=== PATIENT | male | born 1935 | race Caucasian/White ===

== ENCOUNTER → 2017-08-20 09:33 | Outpatient (CLI) | payer MEDICARE, OTHER ==
[2011-09-07 09:47] VITALS: BMI 25.4
== END | disposition home or self-care (01) ==
LOC: D.CT 09:33
DX: R63.4 Abnormal weight loss (principal); R31.9 Hematuria, unspecified

== ENCOUNTER → 2017-08-27 07:48 | Outpatient (CLI) | payer MEDICARE, OTHER ==
[2011-09-07 09:47] VITALS: BMI 25.4
== END | disposition home or self-care (01) ==
LOC: D.CT 07:48
DX: R63.4 Abnormal weight loss (principal)

== ENCOUNTER → 2017-09-10 09:29 | Outpatient (CLI) | payer MEDICARE, OTHER ==
[2011-09-07 09:47] VITALS: BMI 25.4
== END | disposition home or self-care (01) ==
LOC: D.NM 09:29
DX: R93.5 Abnormal findings on diagnostic imaging of other abdominal regions, including retroperitoneum (principal)

== ENCOUNTER → 2017-11-19 10:02 | Outpatient (CLI) | payer MEDICARE, OTHER ==
[2011-09-07 09:47] VITALS: BMI 25.4
[~2017-11-19 10:02] MED LIST: CENTRUM MEN'S1 EACH PO; COUMADIN2.5 MG PO; COUMADIN5 MG PO; LOTREL 5/10 MG1 CAP PO
[2017-11-19 11:19] LABS: BASOPHILS 0.3 % (0-2); EOSINOPHILS 2.4 % (0-7); HEMATOCRIT 41.2 % (42.0-54.0); HEMOGLOBIN 13.7 g/dL (13.5-17.5); IMMATURE GRANULOCYTES 0.3 % (0-5); LYMPHOCYTES 9.6 % (15-50); MCH 32.1 pg (26.0-34.0); MCHC 33.3 g/dL (31.0-37.0); MCV 96.5 fL (80.0-100.0); MEAN PLATELET VOLUME 9.1 fL (7.4-10.4); MONOCYTES 9.3 % (2-11); NEUTROPHILS 78.1 % (40-80); RBC 4.27 10x6/uL (4.20-6.10); RDW 13.4 % (11.5-14.5); WBC 6.7 10x3/uL (4.8-10.8)
[2017-11-19 11:27] LABS: PLATELET COUNT 264 10x3/uL (130-400)
[2017-11-20 12:17] LABS: ANA REFLEX - DIRECT Negative (Negative)
[2018-01-27 13:43] VITALS: BMI 20.7
== END | disposition home or self-care (01) ==
LOC: D.LAB 10-03 09:00 → D.RAD 10-03 09:00 → D.LAB 10-03 09:00
PROVIDERS: Internal Medicine Pulmonary Disease
DX: R91.1 Solitary pulmonary nodule (principal)

== ENCOUNTER → 2018-02-19 08:27 | Outpatient (CLI) | payer MEDICARE, OTHER ==
[2018-01-27 13:43] VITALS: BMI 20.7
[2018-02-19 08:55] LABS: ALBUMIN 2.9 g/dL (3.4-5.0); BILIRUBIN - DIRECT 0.19 mg/dL (0.00-0.30); BILIRUBIN - INDIRECT 0.43 mg/dL (0.00-1.00); BILIRUBIN - TOTAL 0.62 mg/dL (0.2-1.3); PROTEIN - SERUM 6.7 g/dL (6.4-8.2)
== END | disposition home or self-care (01) ==
LOC: D.US 08:27
PROVIDERS: Internal Medicine Gastroenterology
DX: K76.0 Fatty (change of) liver, not elsewhere classified (principal)

== ENCOUNTER 2018-03-05 11:39 | Day surgery (SDC) | payer MEDICARE, OTHER ==
[~2018-03-05] VITALS: Ht 175.3 cm; Wt 63.5 kg
--- NOTE | ~2018-03-05 | OP ---
PATIENT NAME: DENI MEDINA MEDICAL RECORD: [id number] :36 LOCATION:[facility] ADMISSION DATE: SURGEON: HANK ADEN DO DATE OF OPERATION: 03/05/2018 PROCEDURE: Colonoscopy with biopsy. INDICATIONS FOR PROCEDURE: History of diverticular disease and abnormal findings on CT scan from July 2017. He has also had change in bowel habits and abnormal weight loss. SCOPE: Olympus video pediatric colonoscope. MEDICATIONS: Propofol 300 mg IV per anesthesia. ESTIMATED BLOOD LOSS: Minimal. COMPLICATIONS: None. FINDINGS: Informed consent was given. The patient was made comfortable with the above medication. After reaching an adequate level of sedation by slow IV push, the patient was placed on his left side. A digital rectal examination was performed and was normal. The endoscope was advanced under direct visualization through the rectum and advanced only to the sigmoid colon to approximately 25 cm from the anal verge. At this site, there was significant stenosis likely related to diverticular disease. In this area, it was difficult to maintain vision, but there were multiple polypoid appearing lesions, which could be adenomatous or could be consistent with prolapse type polyps from the tissue being pulled in and out through this segment of bowel. There was severe diverticulosis without evidence of diverticulitis. Approximately 30 minutes were spent trying to pass this segment of colon, unsuccessfully. There was no obvious mass or colon cancer visualized. Biopsies were taken of a couple of polypoid lesions to look for adenomatous tissue as well as the surrounding tissue. Tattoo was placed just distal to the stenosed site and the endoscope was withdrawn back into the rectum. Retroflexion was performed in the rectum with a normal appearing rectal wall. The endoscope was withdrawn from the patient. The patient tolerated the procedure well and there were no complications. IMPRESSION: Stenosed sigmoid colon due to severe diverticulosis, but I cannot exclude an obstructing mass or other lesion. There were some polypoid lesions in this side of bowel as well as severe diverticulosis. Biopsies were taken. Tattoo was placed distally to the stenosed segment. PLAN AND RECOMMENDATIONS: 1. Discharge home when recovery parameters are met. 2. Follow up biopsy specimen results. 3. Barium enema to see if contrast passed this site of colon. 4. Recommend surgical consultation for consideration of a resection and further evaluation of this segment of bowel. 5. Pending future plans with possible surgery. May need a followup colonoscopy to evaluate the more proximal segments of colon. TRANSINT:[id number] Voice Confirmation ID: [id number] DOCUMENT ID: [id number] OPERATIVE REPORT [id number] DENI MEDINA,HANK Farias DO at 1255 CC: [id number] DICTATION DATE: 03/05/18 1537 STEEL SPAR OPERATOR: 03/05/18 1613 [facility] 03/05/18 [facility] [address] [place] [address]
[2018-03-05 12:41] LABS: BASOPHILS 0.5 % (0-2); EOSINOPHILS 1.1 % (0-7); HEMATOCRIT 43.6 % (42.0-54.0); HEMOGLOBIN 14.5 g/dL (13.5-17.5); IMMATURE GRANULOCYTES 0.2 % (0-5); LYMPHOCYTES 9.5 % (15-50); MCH 31.9 pg (26.0-34.0); MCHC 33.3 g/dL (31.0-37.0); MCV 95.8 fL (80.0-100.0); MEAN PLATELET VOLUME 8.9 fL (7.4-10.4); MONOCYTES 11.5 % (2-11); NEUTROPHILS 77.2 % (40-80); PLATELET COUNT 254 10x3/uL (130-400); RBC 4.55 10x6/uL (4.20-6.10); RDW 13.8 % (11.5-14.5); WBC 6.4 10x3/uL (4.8-10.8)
[2018-03-05 12:50] LABS: CALCIUM 8.8 mg/dL (8.5-10.1); CARBON DIOXIDE 25.7 mmol/L (21.0-32.0); CREATININE - SERUM 1.1 mg/dL (0.6-1.3); POTASSIUM - SERUM 3.7 mmol/L (3.5-5.1)
[2018-03-05 12:51] LABS: APTT 35.4 SECONDS (22.8-39.4); INR 1.52 (0.85-1.17); PROTIME 17.8 SECONDS (11.6-15.0)
[2018-03-05 13:32] VITALS: BP 176/107; Ht 175.3 cm; Wt 63.5 kg
== END 2018-03-05 18:25 | disposition home or self-care (01) ==
LOC: D.OPS 11:39
PROVIDERS: Anesthesiology
DX: K57.30 Diverticulosis of large intestine without perforation or abscess without bleeding (principal); Z01.812 Encounter for preprocedural laboratory examination

== ENCOUNTER → 2018-03-06 14:09 | Outpatient (CLI) | payer MEDICARE, OTHER ==
[2018-03-05 13:32] VITALS: BMI 21.7
[~2018-03-06 14:09] MED LIST changes: +COLACE100 MG PO; +HYDROCODON-ACE1 EAC7 PO
== END | disposition home or self-care (01) ==
LOC: D.RAD 14:09
DX: K56.609 Unspecified intestinal obstruction, unspecified as to partial versus complete obstruction (principal)

== ENCOUNTER → 2018-03-11 11:01 | Outpatient (CLI) | payer MEDICARE, OTHER ==
[2018-03-05 13:32] VITALS: BMI 21.7
== END | disposition home or self-care (01) ==
LOC: D.CT 11:01
DX: K56.609 Unspecified intestinal obstruction, unspecified as to partial versus complete obstruction (principal)

== ENCOUNTER → 2018-03-13 13:28 | Outpatient (CLI) | payer MEDICARE, OTHER ==
[2018-03-05 13:32] VITALS: BMI 21.7
[2018-03-13 14:49] LABS: CREATININE - SERUM 0.9 mg/dL (0.6-1.3)
== END | disposition home or self-care (01) ==
LOC: D.CT 13:28
PROVIDERS: Internal Medicine Gastroenterology
DX: R93.8 Abnormal findings on diagnostic imaging of other specified body structures (principal); R59.0 Localized enlarged lymph nodes

== ENCOUNTER 2018-04-04 08:50 | Inpatient (IN) | payer MEDICARE, OTHER ==
[2018-04-01 14:40] LABS: BASOPHILS 0.5 % (0-2); EOSINOPHILS 3.6 % (0-7); HEMATOCRIT 38.4 % (42.0-54.0); HEMOGLOBIN 12.5 g/dL (13.5-17.5); IMMATURE GRANULOCYTES 0.2 % (0-5); LYMPHOCYTES 11.2 % (15-50); MCH 31.4 pg (26.0-34.0); MCHC 32.6 g/dL (31.0-37.0); MCV 96.5 fL (80.0-100.0); MEAN PLATELET VOLUME 8.6 fL (7.4-10.4); MONOCYTES 9.3 % (2-11); NEUTROPHILS 75.2 % (40-80); PLATELET COUNT 290 10x3/uL (130-400); RBC 3.98 10x6/uL (4.20-6.10); RDW 13.7 % (11.5-14.5); WBC 6.3 10x3/uL (4.8-10.8)
[2018-04-01 14:50] LABS: CALC OSMOLALITY 290 mosm/kg (275-300); CALCIUM 9.2 mg/dL (8.5-10.1); CARBON DIOXIDE 35.3 mmol/L (21.0-32.0); CHLORIDE - SERUM 104 mmol/L (98-107); CREATININE - SERUM 0.9 mg/dL (0.6-1.3); GLUCOSE 108 mg/dL (74-106); POTASSIUM - SERUM 3.9 mmol/L (3.5-5.1); SODIUM 143 mmol/L (136-145); UREA NITROGEN 26 mg/dL (7-18); eGFR NON AFRICAN AMERICAN 86 mL/min (90-120)
[2018-04-01 15:16] LABS: INR 2.44 (0.85-1.17); PROTIME 25.9 SECONDS (11.6-15.0)
[2018-04-01 15:56] LABS: APTT 131.4 SECONDS (22.8-39.4)
[~2018-04-04] VITALS: Ht 175.3 cm; Wt 62.6 kg
[2018-04-04] VITALS (7 sets, daily range): BP systolic 110–132; BP diastolic 62–84; BMI 20.4
--- NOTE | ~2018-04-04 | OP ---
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 PROCEDURES: 1. Hand-assisted laparoscopic surgery - sigmoid colectomy. 2. Incidental appendectomy. SURGEON: Leticia Bowser MD JOSS HOUSE KEEPER: None. BLOOD LOSS: 150 cc. ANESTHESIA: General. COMPLICATIONS: None. The risks, possible complications, and alternatives to procedure were explained to the patient. He elects to proceed. The discussion specifically included, but was not limited to, bleeding requiring an emergency reoperation, infection, intestinal injury, possibility of colostomy or an ileostomy. We also discussed the possibility of an anastomotic leak. The indication for the appendectomy was to avoid diagnostic confusion in the future should the patient have a recurrence or persistence of abdominal pain. OPERATIVE COURSE: The patient was conveyed to the operating room electively on 04/04/2018. General anesthesia was induced by the anesthesia staff. The patient was placed in the Canales position. A digital rectal examination was performed. A colonoscope was inserted through the anus. It was advanced to the tattooed area. I then identified the diverticular stricture, which was very, very tight. I withdrew the endoscope. This flexible sigmoidoscopy was performed with utilizing CO2. The patient was then positioned supine. The abdomen and genitals were sterilely prepped and draped. A transverse incision was accomplished 2 fingerbreadths above the pubic symphysis. Sharp dissection was carried down through the skin and subcutaneous tissue as well as Rosibel fascia. The anterior fascia was incised transversely. The rectus muscles were pulled laterally. I entered the peritoneum through the midline. An Canelo retractor was placed. A Gelport was placed on top of the Canelo retractor. CO2 insufflation was used to insufflate through the 12 mm trocar. A laparoscopic examination of the abdomen was performed. The laparoscope was removed as well as the Gelport. Through the OPERATIVE REPORT [id number] ADAMDENI XIMENA Canelo retractor, I incised along the left white line of Toldt. There were some adhesions along the left side of the rectum and sigmoid colon. There was an inflammatory mass present. I incised the retroperitoneum on either side of the rectum. I identified the ureters. They were retracted for protection and umbilical tapes were placed around them to position them laterally, so they were undamaged during the operation. Methylene blue was given intravenously and we saw no leakage of methylene blue during the operation. I incised down both sides of the rectum. I bluntly had to free up some very dense scar tissue on the left side of the rectum. I chose the extent of my resection to be the mid sigmoid colon. I stapled across the sigmoid colon here with a CIPRIANO-75 stapler. I then took down the distal sigmoid colon mesentery utilizing the EnSeal device. I took down some of the mesorectum with the EnSeal device. I then placed the TA 60 stapler distal to the inflammatory mass and fired. I transected the sigmoid colon proximal to this. On the back table, I opened up the specimen. It did contain the tattoo as well as an inflammatory mass and the stenotic area. I then placed the proximal sigmoid colon and the rectum in apposition side by side. They were kept in place with 3-0 Vicryl sutures. A small proctotomy and small colotomy were accomplished. I advanced the anvils of the CIPRIANO-75 stapler and then fired. The resulting rectal colonic defect was closed with a running 4-0 Monocryl. I then imbricated this with another row of 4-0 Monocryl. Some additional imbrication with 3-0 Vicryls was then undertaken. The anastomosis appeared to be airtight. I irrigated in the pelvis with normal saline. I created a tunnel in the mesentery by dividing the mesentery off of the transverse colon. The appendix was grasped. A window was created in the mesoappendix. I took down the mesoappendix with the laparoscopic EnSeal device. I then stapled across the tip of the cecum with a CIPRIANO-75 stapler. I ran the small bowel. There was no evidence of injury to the small bowel. I placed a tongue of mesentery down into the pelvis in front of the anastomosis. I reperitonealized with a running 0 Vicryl. The rectus muscles were approximated in the midline with multiple interrupted horizontal mattress #1 Vicryl. The fascia was closed with running #1 Vicryl. The Rosibel's fascia was approximated with interrupted 3-0 Vicryl. The subdermis was approximated with interrupted 3-0 Vicryl. The skin was approximated with a running intracuticular 4-0 Vicryl. Benzoin and Steri-Strips were applied. The patient was then extubated and conveyed to the post-anesthesia care unit where he was in stable condition. TRANSINT:[id number] Voice Confirmation ID: [id number] DOCUMENT ID: [id number] OPERATIVE REPORT [id number] DENI MEDINA, LETICIA ACEVEDO at 1240 CC: JORDANA MACHADO, ADALI HORAN and HANK ADEN DO [id number] DICTATION DATE: 04/04/181851 LIQUID SUGAR FORTIFIER: 04/04/182025 DIS IN 04/10/18 [facility] [address] [place] [address]
[~2018-04-04 08:50] MED LIST changes: -COLACE100 MG PO; -HYDROCODON-ACE1 EAC7 PO
[2018-04-04 09:43] LABS: INR 1.62 (0.85-1.17); PROTIME 18.7 SECONDS (11.6-15.0)
[2018-04-04 09:44] LABS: APTT 39.6 SECONDS (22.8-39.4)
[2018-04-05] VITALS (7 sets, daily range): BP systolic 99–126; BP diastolic 53–77; Ht 175.3 cm; Wt 62.6 kg
[2018-04-05 05:58] LABS: BASOPHILS 0.1 % (0-2); EOSINOPHILS 0 % (0-7); HEMATOCRIT 36.9 % (42.0-54.0); IMMATURE GRANULOCYTES 0.2 % (0-5); LYMPHOCYTES 3.1 % (15-50); MCH 31.1 pg (26.0-34.0); MCHC 32.5 g/dL (31.0-37.0); MCV 95.6 fL (80.0-100.0); MEAN PLATELET VOLUME 9.1 fL (7.4-10.4); MONOCYTES 9.3 % (2-11); NEUTROPHILS 87.3 % (40-80); PLATELET COUNT 256 10x3/uL (130-400); RBC 3.86 10x6/uL (4.20-6.10); RDW 13.7 % (11.5-14.5); WBC 13.1 10x3/uL (4.8-10.8)
[2018-04-05 06:28] LABS: ALBUMIN 2.6 g/dL (3.4-5.0); ANION GAP 13.1 mmol/L (8-16); BILIRUBIN - TOTAL 0.59 mg/dL (0.2-1.3); CALCIUM 8.3 mg/dL (8.5-10.1); CARBON DIOXIDE 25.7 mmol/L (21.0-32.0); CREATININE - SERUM 1.1 mg/dL (0.6-1.3); MAGNESIUM - SERUM 1.8 mg/dL (1.8-2.4); PHOSPHOROUS 3.9 mg/dL (2.5-4.9); POTASSIUM - SERUM 3.8 mmol/L (3.5-5.1); PRE-ALBUMIN 15.3 mg/dL (18.0-35.7)
[2018-04-05] MEDS ORDERED: HYDROCODON-ACE1 EAC7 PO (20:31)
[2018-04-05] MEDS ORDERED: COLACE100 MG PO (20:31)
[2018-04-05] MEDS ORDERED: COUMADIN5 MG PO (23:32)
[2018-04-05] MEDS ORDERED: LOTREL 5/10 MG1 CAP PO (23:33)
[2018-04-05] MEDS ORDERED: COUMADIN2.5 MG PO (23:33)
[2018-04-05] MEDS ORDERED: CENTRUM MEN'S1 EACH PO (23:34)
[2018-04-06] VITALS: BP 111/80
[2018-04-06 04:00] VITALS: BP 129/72
[2018-04-06 05:17] LABS: BASOPHILS 0.1 % (0-2); EOSINOPHILS 0.2 % (0-7); HEMATOCRIT 39.2 % (42.0-54.0); HEMOGLOBIN 12.7 g/dL (13.5-17.5); IMMATURE GRANULOCYTES 0.3 % (0-5); LYMPHOCYTES 4.6 % (15-50); MCH 31.6 pg (26.0-34.0); MCHC 32.4 g/dL (31.0-37.0); MCV 97.5 fL (80.0-100.0); MEAN PLATELET VOLUME 9.1 fL (7.4-10.4); MONOCYTES 14.3 % (2-11); NEUTROPHILS 80.5 % (40-80); PLATELET COUNT 292 10x3/uL (130-400); RBC 4.02 10x6/uL (4.20-6.10); WBC 11.1 10x3/uL (4.8-10.8)
[2018-04-06 05:36] LABS: ALBUMIN 2.6 g/dL (3.4-5.0); BILIRUBIN - TOTAL 0.57 mg/dL (0.2-1.3); CALCIUM 8.5 mg/dL (8.5-10.1); CARBON DIOXIDE 27.5 mmol/L (21.0-32.0); CREATININE - SERUM 1.1 mg/dL (0.6-1.3); PROTEIN - SERUM 5.8 g/dL (6.4-8.2)
[2018-04-06 05:37] LABS: POTASSIUM - SERUM 4.5 mmol/L (3.5-5.1)
[2018-04-06 08:55] VITALS: BP 122/78
[2018-04-06 12:52] VITALS: BP 145/84
[2018-04-06 15:30] LABS: MACROPHAGES BF 7 %; MESOTHELIALS BF 3 %; NEUT - BF 85 %
[2018-04-06 16:20] VITALS: BP 119/57
[2018-04-06 20:52] VITALS: BP 113/74
[2018-04-07 03:35] VITALS: BP 113/83
[2018-04-07 06:00] LABS: BASOPHILS 0.1 % (0-2); EOSINOPHILS 0.3 % (0-7); HEMATOCRIT 40.2 % (42.0-54.0); HEMOGLOBIN 13.2 g/dL (13.5-17.5); IMMATURE GRANULOCYTES 0.3 % (0-5); LYMPHOCYTES 3.2 % (15-50); MCH 32.4 pg (26.0-34.0); MCHC 32.8 g/dL (31.0-37.0); MCV 98.5 fL (80.0-100.0); MEAN PLATELET VOLUME 9.2 fL (7.4-10.4); MONOCYTES 10.6 % (2-11); NEUTROPHILS 85.5 % (40-80); PLATELET COUNT 284 10x3/uL (130-400); RBC 4.08 10x6/uL (4.20-6.10); RDW 14.2 % (11.5-14.5); WBC 13.6 10x3/uL (4.8-10.8)
[2018-04-07 06:26] LABS: ALBUMIN 2.3 g/dL (3.4-5.0); ALKALINE PHOSPHATASE 64 U/L (46-116); ALT (SGPT) 16 U/L (10-68); BILIRUBIN - TOTAL 0.88 mg/dL (0.2-1.3); CALC OSMOLALITY 288 mosm/kg (275-300); CALCIUM 8.9 mg/dL (8.5-10.1); CARBON DIOXIDE 29.7 mmol/L (21.0-32.0); CHLORIDE - SERUM 105 mmol/L (98-107); GLUCOSE 114 mg/dL (74-106); POTASSIUM - SERUM 4.4 mmol/L (3.5-5.1); PROTEIN - SERUM 6.7 g/dL (6.4-8.2); SODIUM 140 mmol/L (136-145); UREA NITROGEN 39 mg/dL (7-18); eGFR NON AFRICAN AMERICAN 76 mL/min (90-120)
[2018-04-07 08:43] VITALS: BP 113/65
[2018-04-07 13:16] VITALS: BP 120/67
[2018-04-07 18:06] VITALS: BP 126/75
[2018-04-07 21:02] VITALS: BP 111/63
[2018-04-08 03:56] VITALS: BP 131/75
[2018-04-08 05:59] LABS: BASOPHILS 0.1 % (0-2); EOSINOPHILS 1.1 % (0-7); HEMATOCRIT 38.2 % (42.0-54.0); HEMOGLOBIN 12.4 g/dL (13.5-17.5); IMMATURE GRANULOCYTES 0.3 % (0-5); LYMPHOCYTES 3.2 % (15-50); MCH 31.6 pg (26.0-34.0); MCHC 32.5 g/dL (31.0-37.0); MCV 97.4 fL (80.0-100.0); MEAN PLATELET VOLUME 9.2 fL (7.4-10.4); MONOCYTES 11.3 % (2-11); PLATELET COUNT 269 10x3/uL (130-400); RBC 3.92 10x6/uL (4.20-6.10); WBC 12.3 10x3/uL (4.8-10.8)
[2018-04-08 06:28] LABS: ALBUMIN 2.1 g/dL (3.4-5.0); ALKALINE PHOSPHATASE 67 U/L (46-116); ALT (SGPT) 18 U/L (10-68); BILIRUBIN - TOTAL 0.68 mg/dL (0.2-1.3); CALC OSMOLALITY 285 mosm/kg (275-300); CALCIUM 8.3 mg/dL (8.5-10.1); CARBON DIOXIDE 28.4 mmol/L (21.0-32.0); CHLORIDE - SERUM 106 mmol/L (98-107); GLUCOSE 106 mg/dL (74-106); POTASSIUM - SERUM 4.1 mmol/L (3.5-5.1); SODIUM 140 mmol/L (136-145); UREA NITROGEN 31 mg/dL (7-18); eGFR NON AFRICAN AMERICAN 76 mL/min (90-120)
[2018-04-08 09:21] VITALS: BP 136/91
[2018-04-08 12:38] VITALS: BP 135/84
[2018-04-08 17:30] VITALS: BP 132/87
[2018-04-08 21:36] VITALS: BP 142/77
[2018-04-09 04:17] VITALS: BP 150/85
[2018-04-09 06:06] LABS: BASOPHILS 0.1 % (0-2); EOSINOPHILS 3.1 % (0-7); HEMATOCRIT 37.8 % (42.0-54.0); HEMOGLOBIN 12.3 g/dL (13.5-17.5); IMMATURE GRANULOCYTES 0.2 % (0-5); LYMPHOCYTES 5.6 % (15-50); MCH 31.4 pg (26.0-34.0); MCHC 32.5 g/dL (31.0-37.0); MCV 96.4 fL (80.0-100.0); MEAN PLATELET VOLUME 9.3 fL (7.4-10.4); PLATELET COUNT 301 10x3/uL (130-400); RBC 3.92 10x6/uL (4.20-6.10); RDW 13.8 % (11.5-14.5); WBC 10.8 10x3/uL (4.8-10.8)
[2018-04-09 06:36] LABS: ALBUMIN 2.1 g/dL (3.4-5.0); ALKALINE PHOSPHATASE 86 U/L (46-116); ALT (SGPT) 23 U/L (10-68); BILIRUBIN - TOTAL 0.74 mg/dL (0.2-1.3); CALC OSMOLALITY 282 mosm/kg (275-300); CALCIUM 8.2 mg/dL (8.5-10.1); CARBON DIOXIDE 28.9 mmol/L (21.0-32.0); CHLORIDE - SERUM 105 mmol/L (98-107); CREATININE - SERUM 0.7 mg/dL (0.6-1.3); GLUCOSE 100 mg/dL (74-106); POTASSIUM - SERUM 3.7 mmol/L (3.5-5.1); PROTEIN - SERUM 6.2 g/dL (6.4-8.2); SODIUM 140 mmol/L (136-145); UREA NITROGEN 25 mg/dL (7-18); eGFR NON AFRICAN AMERICAN > 90 mL/min (90-120)
[2018-04-09 08:40] VITALS: BP 171/101
[2018-04-09 12:19] VITALS: BP 126/87
[2018-04-09] MEDS ORDERED: HYDROCODON-ACE1 EAC7 PO (13:36)
[2018-04-09 16:37] VITALS: BP 125/73
[2018-04-09 19:50] VITALS: BP 137/55
[2018-04-10] VITALS: BP 139/79
[2018-04-10 04:00] VITALS: BP 131/74
[2018-04-10 05:31] LABS: BASOPHILS 0.3 % (0-2); EOSINOPHILS 4.2 % (0-7); HEMATOCRIT 35.7 % (42.0-54.0); HEMOGLOBIN 11.6 g/dL (13.5-17.5); IMMATURE GRANULOCYTES 0.4 % (0-5); LYMPHOCYTES 6.4 % (15-50); MCH 31.2 pg (26.0-34.0); MCHC 32.5 g/dL (31.0-37.0); MEAN PLATELET VOLUME 9.3 fL (7.4-10.4); NEUTROPHILS 76.7 % (40-80); PLATELET COUNT 293 10x3/uL (130-400); RBC 3.72 10x6/uL (4.20-6.10); RDW 13.7 % (11.5-14.5); WBC 10.1 10x3/uL (4.8-10.8)
[2018-04-10 06:01] LABS: ALBUMIN 1.9 g/dL (3.4-5.0); ALKALINE PHOSPHATASE 110 U/L (46-116); ALT (SGPT) 28 U/L (10-68); BILIRUBIN - TOTAL 0.41 mg/dL (0.2-1.3); CALCIUM 7.8 mg/dL (8.5-10.1); CARBON DIOXIDE 33.3 mmol/L (21.0-32.0); CHLORIDE - SERUM 106 mmol/L (98-107); GLUCOSE 102 mg/dL (74-106); PROTEIN - SERUM 5.7 g/dL (6.4-8.2); SODIUM 142 mmol/L (136-145)
[2018-04-10 06:04] LABS: CALC OSMOLALITY 289 mosm/kg (275-300); CREATININE - SERUM 0.9 mg/dL (0.6-1.3); UREA NITROGEN 32 mg/dL (7-18); eGFR NON AFRICAN AMERICAN 86 mL/min (90-120)
[2018-04-10 08:19] VITALS: BP 131/78
[2018-04-10 12:41] VITALS: BP 133/79
== END 2018-04-10 14:08 | DRG 330 ==
LOC: D.SDCHOLD 08:50 → D.MS 08:50 → D.SDCHOLD 11:00 → D.MS 18:54
PROVIDERS: Anesthesiology; Family Medicine Adult Medicine; Orthopaedic Surgery; Surgery
PROC: 0DBN0ZZ Excision of Sigmoid Colon, Open Approach (ICD-10-PCS; principal; 2018-04-04 11:30)
PROC: 0DTJ0ZZ Resection of Appendix, Open Approach (ICD-10-PCS; 2018-04-04 11:30)
PROC: 0S9C3ZZ Drainage of Right Knee Joint, Percutaneous Approach (ICD-10-PCS; 2018-04-06)
DX: K56.699 Other intestinal obstruction unspecified as to partial versus complete obstruction (principal); K57.32 Diverticulitis of large intestine without perforation or abscess without bleeding; M87.9 Osteonecrosis, unspecified; I10 Essential (primary) hypertension; I25.10 Atherosclerotic heart disease of native coronary artery without angina pectoris; I48.91 Unspecified atrial fibrillation; Z95.5 Presence of coronary angioplasty implant and graft; M25.461 Effusion, right knee; R50.9 Fever, unspecified; M93.261 Osteochondritis dissecans, right knee

== ENCOUNTER → 2018-04-24 11:50 | Outpatient (CLI) | payer MEDICARE, OTHER ==
[2018-04-05 10:49] VITALS: BMI 20.3
[~2018-04-24 11:50] MED LIST changes: +COLACE100 MG PO; +HYDROCODON-ACE1 EAC7 PO
== END | disposition home or self-care (01) ==
LOC: D.RAD 11:50
DX: R10.9 Unspecified abdominal pain (principal)

== ENCOUNTER 2018-06-22 13:30 | Inpatient (IN) | payer MEDICARE, OTHER ==
[~2018-06-22] VITALS: Ht 175.3 cm; Wt 60.3 kg
--- NOTE | ~2018-06-22 | PN ---
PATIENT:DENI MEDINA MEDICAL RECORD: [id number] LOCATION:[facility] ADMISSION DATE: 06/22/18 PROGRESS NOTE DATE OF SERVICE: 07/04/2018 SUBJECTIVE: The patient's case was discussed with staff. He has no new complaint. OBJECTIVE: The patient is in good behavioral control with limited insight about his condition. He does tolerate his medicines well. ASSESSMENT: No change in diagnoses. PLAN: Current medicines have been reviewed and will be maintained. Long-term prognosis is guarded. I am going to increase the dose of his Zoloft to 75 mg daily. TRANSINT:[id number] Voice Confirmation ID: [id number] DOCUMENT ID: [id number] TETO BULLARD MD at 2015 CC: [id number] DICTATION DATE: 07/04/18 1147 SENIOR QUALITY ANALYST: 07/04/18 1400 ADM IN [place] [id number] [place] [address]
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
--- NOTE | ~2018-06-22 | PN ---
PATIENT:DENI MEDINA MEDICAL RECORD: [id number] LOCATION:[facility] ADMISSION DATE: 06/22/18 PROGRESS NOTE DATE OF SERVICE: 06/29/2018 SUBJECTIVE: The patient's case was discussed with staff. He has no new complaint. OBJECTIVE: The patient is in good behavioral control. He is quite confused and impaired intellectually. ASSESSMENT: No change in diagnoses. PLAN: Supportive and educational interventions were made. Long-term prognosis is guarded. TRANSINT:[id number] Voice Confirmation ID: [id number] DOCUMENT ID: [id number] TETO BULLARD MD at 1017 CC: [id number] DICTATION DATE: 06/29/18 1300 APPLIED RESEARCHER: 06/29/18 1324 ADM IN [place] [id number] [place] [address]
--- NOTE | ~2018-06-22 | PN ---
PATIENT:DENI MEDINA MEDICAL RECORD: [id number] LOCATION:[facility] ADMISSION DATE: 06/22/18 PROGRESS NOTE DATE OF SERVICE: 06/25/2018 SUBJECTIVE: The patient's case was discussed with staff. He has no new complaint. OBJECTIVE: The patient is in good behavioral control with limited insight about his condition. He does tolerate his medicines well. He has not been aggressive. ASSESSMENT: No change in diagnoses. PLAN: Current medicines have been reviewed and will be maintained. Long-term prognosis is guarded. TRANSINT:[id number] Voice Confirmation ID: [id number] DOCUMENT ID: [id number] TETO BULLARD MD at 1254 CC: [id number] DICTATION DATE: 06/25/181811 STAMPING PRESS OPERATOR: 06/25/181912 ADM IN [facility] [address] [place] [address]
--- NOTE | ~2018-06-22 | PN ---
PATIENT:DENI MEDINA MEDICAL RECORD: [id number] LOCATION:[facility] ADMISSION DATE: 06/22/18 PROGRESS NOTE DATE OF SERVICE: 06/27/2018 SUBJECTIVE: The patient's case was discussed with staff. He has no new complaint. OBJECTIVE: The patient is quite impaired and has a depressed mood, but he has not been aggressive. ASSESSMENT: No change in diagnoses. PLAN: The patient will be maintained on current medicines, which I have reviewed. His long-term prognosis is guarded. TRANSINT:[id number] Voice Confirmation ID: [id number] DOCUMENT ID: [id number] TETO BULLARD MD at 1043 CC: [id number] DICTATION DATE: 06/27/18 1018 MOTORS AND GENERATORS INSPECTOR: 06/27/18 1039 ADM IN [place] [address] [place] [address]
--- NOTE | ~2018-06-22 | PN ---
PATIENT:DENI MEDINA MEDICAL RECORD: [id number] LOCATION:[facility] ADMISSION DATE: 06/22/18 PROGRESS NOTE DATE OF SERVICE: 07/02/2018 SUBJECTIVE: The patient's case was discussed with staff. He has no new complaint. OBJECTIVE: The patient is in good behavioral control with limited insight about his condition. He tolerates his medicines well. ASSESSMENT: No change in diagnoses. PLAN: Current medicines and therapies have been reviewed and will be maintained. Long-term prognosis is guarded. Brief supportive and educational interventions were made. TRANSINT:[id number] Voice Confirmation ID: [id number] DOCUMENT ID: [id number] TETO BULLARD MD at 0935 CC: [id number] DICTATION DATE: 07/02/18 1055 CHILD SUPPORT SPECIALIST: 07/02/18 1150 ADM IN [place] [address] [place] [address]
--- NOTE | ~2018-06-22 | PN ---
PATIENT:DENI MEDINA MEDICAL RECORD: [id number] LOCATION:[facility] ADMISSION DATE: 06/22/18 PROGRESS NOTE DATE OF SERVICE: 07/09/2018 SUBJECTIVE: The patient's case was discussed with staff. He has no new complaint. OBJECTIVE: The patient is significantly impaired cognitively. He will be monitored for clinical changes associated with his medications. He has not been aggressive. ASSESSMENT: No change in diagnoses. PLAN: Current medicines and therapies have been reviewed and will be maintained. Long-term prognosis is guarded. TRANSINT:[id number] Voice Confirmation ID: [id number] DOCUMENT ID: [id number] TETO BULLARD MD at 1613 CC: [id number] DICTATION DATE: 07/09/18 1232 CLOTH GRADER: 07/09/18 1246 ADM IN [facility] [address] [place] [address]
--- NOTE | ~2018-06-22 | PN ---
PATIENT:DENI MEDINA MEDICAL RECORD: [id number] LOCATION:[facility] ADMISSION DATE: 06/22/18 PROGRESS NOTE DATE OF SERVICE: 07/01/2018 SUBJECTIVE: The patient's case was discussed with staff. He has no new complaint. OBJECTIVE: The patient is in good behavioral control, but severely impaired cognitively. He has not had anything close to the behavioral outbursts that caused him to be admitted here. He is clearly very confused and I think that the explanation for the difference in his behaviors at home and here is that he constantly has people who are interacting with him, cueing him, and redirecting him. This keeps him from escalating. I do not think he would have the same kind of supervision at home and he certainly would not have the same sort of trained experience staff to manage his behaviors. Based on this, I must say that I am opposed to him returning home and at this point, his family does want him placed in a mcc, so we will seek mcc placement. TRANSINT:[id number] Voice Confirmation ID: [id number] DOCUMENT ID: [id number] TETO BULLARD MD at 0909 CC: [id number] DICTATION DATE: 07/01/18 1038 GAS GOLF CART REPAIRER: 07/01/18 1113 ADM IN [place] [address] [place] [id number]
--- NOTE | ~2018-06-22 | PN ---
PATIENT:DENI MEDINA MEDICAL RECORD: [id number] LOCATION:[facility] ADMISSION DATE: 06/22/18 PROGRESS NOTE DATE OF SERVICE: 06/30/2018 SUBJECTIVE: The patient's case was discussed with staff. He has no new complaint. OBJECTIVE: The patient denies intent to harm himself or others. He tolerates his medicines well. Eye contact is fair. ASSESSMENT: No change in diagnoses. PLAN: Supportive and educational interventions were made. The patient will be maintained on current medicines. TRANSINT:[id number] Voice Confirmation ID: [id number] DOCUMENT ID: [id number] TETO BULLARD MD at 0946 CC: [id number] DICTATION DATE: 06/30/18 1041 HOT SHOT: 06/30/18 1058 ADM IN [place] [address] [place] [address]
--- NOTE | ~2018-06-22 | PN ---
PATIENT:DENI MEDINA MEDICAL RECORD: [id number] LOCATION:[facility] ADMISSION DATE: 06/22/18 PROGRESS NOTE DATE OF SERVICE: 06/24/2018 SUBJECTIVE: The patient's case was discussed with staff. He has no new complaint. OBJECTIVE: The patient is in good behavioral control with limited insight about his condition. He generally tolerates his medicines well. ASSESSMENT: No change in diagnoses. PLAN: Supportive and educational interventions were made. Long-term prognosis is guarded. TRANSINT:[id number] Voice Confirmation ID: [id number] DOCUMENT ID: [id number] TETO BULLARD MD at 1641 CC: [id number] DICTATION DATE: 06/24/18 1003 ACID BATH MIXER: 06/24/18 1045 ADM IN [place] [id number] [place] [address]
--- NOTE | ~2018-06-22 | PN ---
PATIENT:DENI MEDINA MEDICAL RECORD: [id number] LOCATION:[facility] ADMISSION DATE: 06/22/18 PROGRESS NOTE DATE OF SERVICE: 07/08/2018 SUBJECTIVE: The patient's case was discussed with staff. He has no new complaint. OBJECTIVE: The patient is in good behavioral control with poor insight about his condition. He does tolerate his medicines well. ASSESSMENT: No change in diagnoses. PLAN: Supportive and educational interventions were made. Long-term prognosis is guarded. I anticipate the patient can be transitioned out of the hospital soon. TRANSINT:[id number] Voice Confirmation ID: [id number] DOCUMENT ID: [id number] TETO BULLARD MD at 0827 CC: [id number] DICTATION DATE: 07/08/18 1448 ROLL HAULER: 07/08/18 1642 ADM IN [facility] [address] [place] [id number]
--- NOTE | ~2018-06-22 | PN ---
PATIENT:DENI MEDINA MEDICAL RECORD: [id number] LOCATION:[facility] ADMISSION DATE: 06/22/18 PROGRESS NOTE DATE OF SERVICE: 07/05/2018 SUBJECTIVE: The patient's case was discussed with staff. He has no new complaint. OBJECTIVE: The patient denies intent to harm himself or others. He generally tolerates his medicines well. ASSESSMENT: No change in diagnoses. PLAN: Current medicines have been reviewed and will be maintained. Long-term prognosis is guarded. TRANSINT:[id number] Voice Confirmation ID: [id number] DOCUMENT ID: [id number] TETO BULLARD MD at 1117 CC: [id number] DICTATION DATE: 07/05/18 1151 OUTSIDE PLANT CABLE ENGINEER: 07/05/18 1200 ADM IN [facility] [address] [place] [address]
--- NOTE | ~2018-06-22 | PN ---
PATIENT:DENI MEDINA MEDICAL RECORD: [id number] LOCATION:[facility] ADMISSION DATE: 06/22/18 PROGRESS NOTE DATE OF SERVICE: 06/28/2018 SUBJECTIVE: The patient's case was discussed with staff. He has no new complaint. OBJECTIVE: The patient is in good behavioral control with limited insight about his condition. He does tolerate his medicines well. ASSESSMENT: No change in diagnoses. PLAN: Current medicines and therapies have been reviewed and will be maintained. Long-term prognosis is guarded. TRANSINT:[id number] Voice Confirmation ID: [id number] DOCUMENT ID: [id number] TETO BULLARD MD at 1017 CC: [id number] DICTATION DATE: 06/28/18 1109 OFFICE EQUIPMENT MECHANIC: 06/28/18 1202 ADM IN [address] [place] [address]
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
--- NOTE | ~2018-06-22 | PN ---
PATIENT:DENI MEDINA MEDICAL RECORD: [id number] LOCATION:[facility] ADMISSION DATE: 06/22/18 PROGRESS NOTE DATE OF SERVICE: 07/10/2018 SUBJECTIVE: The patient's case was discussed with staff. He has no new complaint. OBJECTIVE: The patient is in good behavioral control. He has limited insight about his condition. He is tolerating his medicines well. ASSESSMENT: No change in diagnoses. PLAN: Supportive and educational interventions were made. Long-term prognosis is guarded. I do plan to transition the patient out of the hospital tomorrow morning. TRANSINT:[id number] Voice Confirmation ID: [id number] DOCUMENT ID: [id number] TETO BULLARD MD at 1627 CC: [id number] DICTATION DATE: 07/10/18 172 WALLPAPER INSTALLER: 07/10/187 DIS IN 07/11/18 [facility] [address] [place] [address]
--- NOTE | ~2018-06-22 | PN ---
PATIENT:DENI MEDINA MEDICAL RECORD: [id number] LOCATION:[facility] ADMISSION DATE: 06/22/18 PROGRESS NOTE DATE OF SERVICE: 07/06/2018 SUBJECTIVE: The patient's case was discussed with staff. He has no new complaint. OBJECTIVE: The patient is in good behavioral control with limited insight about his condition. He generally tolerates his medicines well. ASSESSMENT: No change in diagnoses. PLAN: Supportive and educational interventions were made. Long-term prognosis is guarded. TRANSINT:[id number] Voice Confirmation ID: [id number] DOCUMENT ID: [id number] TETO BULLARD MD at 1502 CC: [id number] DICTATION DATE: 07/06/18 1158 MILLING SUPERVISOR: 07/06/18 1307 ADM IN [address] [place] [address]
--- NOTE | ~2018-06-22 | PN ---
PATIENT:DENI MEDINA MEDICAL RECORD: [id number] LOCATION:[facility] ADMISSION DATE: 06/22/18 PROGRESS NOTE DATE OF SERVICE: 07/07/2018 SUBJECTIVE: The patient's case was discussed with staff. He has no new complaint. OBJECTIVE: The patient is in good behavioral control with limited insight about his condition. He tolerates his medicines well. ASSESSMENT: No change in diagnoses. PLAN: Supportive and educational interventions were made. I anticipate the patient can be transitioned out of the hospital soon if this level of improvement continues. TRANSINT:[id number] Voice Confirmation ID: [id number] DOCUMENT ID: [id number] TETO BULLARD MD at 1203 CC: [id number] DICTATION DATE: 07/07/18 1602 BLOW MOULDING MACHINE OPERATOR: 07/07/18 1812 ADM IN [facility] [address] [place] [address]
--- NOTE | ~2018-06-22 | PN ---
PATIENT:DENI MEDINA MEDICAL RECORD: [id number] LOCATION:[facility] ADMISSION DATE: 06/22/18 PROGRESS NOTE DATE OF SERVICE: 06/26/2018 SUBJECTIVE: The patient's case was discussed with staff. He has no new complaint. OBJECTIVE: The patient is in good behavioral control with limited insight about his condition. He is tolerating his medications well. ASSESSMENT: No change in diagnoses. PLAN: The patient is going to be given a low dose of Zoloft secondary to some depressive symptoms. He will be monitored for clinical changes associated with its use. His long-term prognosis is guarded. TRANSINT:[id number] Voice Confirmation ID: [id number] DOCUMENT ID: [id number] TETO BULLARD MD at 0954 CC: [id number] DICTATION DATE: 06/26/18 1324 RESEARCH CHEF: 06/26/18 1336 ADM IN [id number] [place] [address]
[2018-06-22] MEDS ORDERED: DONEPEZIL HCL5 M1 PO (13:37)
[2018-06-22] MEDS ORDERED: ULTRAM50 MG PO (13:38)
[2018-06-22 14:02] VITALS: BP 115/90
[2018-06-22 14:30] VITALS: BP 144/84
[2018-06-22 14:34] LABS: UDS - AMPHET NEGATIVE QUAL (NEGATIVE); UDS - BARB NEGATIVE QUAL (NEGATIVE); UDS - BENZO NEGATIVE QUAL (NEGATIVE); UDS - COCAINE NEGATIVE QUAL (NEGATIVE); UDS - OPIATE NEGATIVE QUAL (NEGATIVE); UDS - PCP NEGATIVE QUAL (NEGATIVE); UDS - THC NEGATIVE QUAL (NEGATIVE)
[2018-06-22 14:39] LABS: ALBUMIN 3.3 g/dL (3.4-5.0); ALKALINE PHOSPHATASE 64 U/L (46-116); ALT (SGPT) 23 U/L (10-68); BILIRUBIN - TOTAL 0.61 mg/dL (0.2-1.3); CALC OSMOLALITY 283 mosm/kg (275-300); CALCIUM 9.4 mg/dL (8.5-10.1); CARBON DIOXIDE 30.3 mmol/L (21.0-32.0); CHLORIDE - SERUM 104 mmol/L (98-107); CREATININE - SERUM 1.1 mg/dL (0.6-1.3); GLUCOSE 112 mg/dL (74-106); POTASSIUM - SERUM 3.9 mmol/L (3.5-5.1); PROTEIN - SERUM 6.9 g/dL (6.4-8.2); SODIUM 140 mmol/L (136-145); UREA NITROGEN 24 mg/dL (7-18); eGFR NON AFRICAN AMERICAN 68 mL/min (90-120)
[2018-06-22 14:51] LABS: CKMB 1.9 U/L (0.0-3.6); MAGNESIUM - SERUM 2.1 mg/dL (1.8-2.4); THYROID STIMULATING HORMONE 1.23 uIU/mL (0.36-3.74)
[2018-06-22 15:03] VITALS: BP 145/923
[2018-06-22 15:03] LABS: APPEARANCE CLEAR (CLEAR); BILIRUBIN NEGATIVE (NEGATIVE); COLOR YELLOW (YELLOW); GLUCOSE NEGATIVE (NEGATIVE); KETONE NEGATIVE (NEGATIVE); NITRITE NEGATIVE (NEGATIVE); PROTEIN 1+ mg/dL (NEGATIVE); UROBILINOGEN NORMAL (NORMAL)
[2018-06-22 15:23] LABS: BASOPHILS 0.2 % (0-2); EOSINOPHILS 0.6 % (0-7); HEMATOCRIT 40.9 % (42.0-54.0); HEMOGLOBIN 13.8 g/dL (13.5-17.5); IMMATURE GRANULOCYTES 0.2 % (0-5); LYMPHOCYTES 5.3 % (15-50); MCH 31.4 pg (26.0-34.0); MCHC 33.7 g/dL (31.0-37.0); MCV 93.2 fL (80.0-100.0); MEAN PLATELET VOLUME 9.3 fL (7.4-10.4); MONOCYTES 6.3 % (2-11); NEUTROPHILS 87.4 % (40-80); PLATELET COUNT 244 10x3/uL (130-400); RBC 4.39 10x6/uL (4.20-6.10); RDW 14.2 % (11.5-14.5)
[2018-06-22 15:30] VITALS: BP 138/95
[2018-06-22 17:58] VITALS: BP 148/106; BMI 17.8
[2018-06-22 20:00] VITALS: BP 146/90
[2018-06-23 06:28] LABS: INR 1.44 (0.85-1.17)
[2018-06-23 06:46] LABS: CHOL - HDL RATIO 2.7 ratio (2.3-4.9); LDL-HDL RATIO 1.5 ratio (1.5-3.5)
[2018-06-23 10:11] VITALS: BP 141/80
[2018-06-23 14:59] VITALS: BMI 17.7
[2018-06-23 20:39] VITALS: BP 100/54
[2018-06-24 06:15] LABS: RAPID PLASMA REAGIN Non Reactive (Non Reactive)
[2018-06-24 07:23] LABS: VITAMIN D 25 HYDROXY 40.3 ng/mL (30.0-100.0)
[2018-06-24 08:18] LABS: FOLATE (FOLIC ACID) - SERUM >20.0 ng/mL (>3.0)
[2018-06-24 09:30] VITALS: BP 138/85
[2018-06-24 18:54] LABS: INR 1.41 (0.85-1.17); PROTIME 16.8 SECONDS (11.6-15.0)
[2018-06-24 19:31] VITALS: BP 138/72
[2018-06-25 05:38] LABS: INR 1.49 (0.85-1.17); PROTIME 17.5 SECONDS (11.6-15.0)
[2018-06-25 09:18] VITALS: BP 132/71
[2018-06-25 19:49] VITALS: BP 106/63
[2018-06-26 10:12] VITALS: BP 137/94
[2018-06-26 21:12] VITALS: BP 140/79
[2018-06-27 05:37] LABS: INR 2.28 (0.85-1.17); PROTIME 24.5 SECONDS (11.6-15.0)
[2018-06-27 09:11] VITALS: BP 134/82
[2018-06-28 11:07] VITALS: BP 145/70
[2018-06-29 08:00] VITALS: BP 123/88
[2018-06-29 21:01] VITALS: BP 124/71
[2018-06-30 07:00] VITALS: BP 144/81
[2018-06-30 12:59] LABS: INR 3.15 (0.85-1.17); PROTIME 31.6 SECONDS (11.6-15.0)
[2018-06-30 19:22] VITALS: BP 137/72
[2018-07-01 07:00] VITALS: BP 142/65
[2018-07-01 20:19] VITALS: BP 114/69
[2018-07-02 07:07] LABS: INR 3.44 (0.85-1.17); PROTIME 33.9 SECONDS (11.6-15.0)
[2018-07-02 08:00] VITALS: BP 136/83
[2018-07-02 19:23] VITALS: BP 118/54
[2018-07-03 10:29] VITALS: Ht 175.3 cm; Wt 60.3 kg
[2018-07-03 19:38] VITALS: BP 150/80
[2018-07-04 07:07] LABS: INR 2.12 (0.85-1.17); PROTIME 23.1 SECONDS (11.6-15.0)
[2018-07-04 08:30] VITALS: BP 152/97
[2018-07-04 20:23] VITALS: BP 113/61
[2018-07-05 10:33] VITALS: BP 133/82
[2018-07-05 20:33] VITALS: BP 122/68
[2018-07-06 07:00] VITALS: BP 136/78
[2018-07-06 20:00] VITALS: BP 114/67
[2018-07-07 06:56] LABS: INR 1.78 (0.85-1.17); PROTIME 20.2 SECONDS (11.6-15.0)
[2018-07-07 07:00] VITALS: BP 148/81
[2018-07-07 07:17] LABS: INR 1.78 (0.85-1.17); PROTIME 20.2 SECONDS (11.6-15.0)
[2018-07-07 19:38] VITALS: BP 110/67
[2018-07-08 06:57] LABS: INR 1.73 (0.85-1.17); PROTIME 19.7 SECONDS (11.6-15.0)
[2018-07-08 08:00] VITALS: BP 135/72
[2018-07-08 19:51] VITALS: BP 107/55
[2018-07-09 06:26] LABS: INR 1.81 (0.85-1.17); PROTIME 20.4 SECONDS (11.6-15.0)
[2018-07-09 08:04] VITALS: BP 145/79
[2018-07-09 20:04] VITALS: BP 146/62
[2018-07-10 09:13] VITALS: BP 151/83
[2018-07-10] MEDS ORDERED: COUMADIN4 MG PO (17:45)
[2018-07-10] MEDS ORDERED: NORVASC5 MG PO (17:46)
[2018-07-10] MEDS ORDERED: LOTENSIN 10 MG10 MG PO (17:46)
[2018-07-10] MEDS ORDERED: ZOLOFT100 MG PO (17:46)
[2018-07-10 20:49] VITALS: BP 140/76
== END 2018-07-11 14:00 | DRG 57 ==
LOC: D.ER 13:30 → D.PSYCH 16:13
PROVIDERS: Emergency Medicine; Family Medicine; Psychiatry & Neurology Psychiatry
DX: G30.1 Alzheimer's disease with late onset (principal); F02.81 Dementia in other diseases classified elsewhere, unspecified severity, with behavioral disturbance; I10 Essential (primary) hypertension; F10.97 Alcohol use, unspecified with alcohol-induced persisting dementia; I48.2 Chronic atrial fibrillation; M17.10 Unilateral primary osteoarthritis, unspecified knee; I25.10 Atherosclerotic heart disease of native coronary artery without angina pectoris

== ENCOUNTER 2018-11-06 09:02 | Inpatient (IN) | payer MEDICARE, OTHER ==
[~2018-11-06] VITALS: Ht 175.3 cm; Wt 68.0 kg
[~2018-11-06 09:02] MED LIST changes: +COUMADIN4 MG PO; +DONEPEZIL HCL5 M1 PO; +LOTENSIN 10 MG10 MG PO; +NORVASC5 MG PO; +ULTRAM50 MG PO; +ZOLOFT100 MG PO
[2018-11-06] MEDS ORDERED: TEGRETOL 100 M100 MG PO (09:09)
[2018-11-06] MEDS ORDERED: ECOTRIN325 MG PO (09:09)
[2018-11-06] MEDS ORDERED: COREG6.25 MG PO (09:10)
[2018-11-06] MEDS ORDERED: FUROSEMIDE20 MG PO (09:10)
[2018-11-06] MEDS ORDERED: LOTENSIN 10 MG10 MG PO (09:10)
[2018-11-06] MEDS ORDERED: MELATONIN 3 MG1 TAB PO (09:10)
[2018-11-06] MEDS ORDERED: ELIQUIS5 MG PO (09:10)
[2018-11-06] MEDS ORDERED: KLOR-CON 1010 MEQ PO (09:11)
[2018-11-06 10:07] LABS: HEMATOCRIT 39.4 % (42.0-54.0); HEMOGLOBIN 12.6 g/dL (13.5-17.5); MCH 29.4 pg (26.0-34.0); MCV 91.8 fL (80.0-100.0); MEAN PLATELET VOLUME 8.7 fL (7.4-10.4); NEUTROPHILS 82.4 % (40-80); RBC 4.29 10x6/uL (4.20-6.10); RDW 15.8 % (11.5-14.5)
[2018-11-06 10:09] LABS: INR 1.42 (0.85-1.17); PROTIME 16.7 SECONDS (11.6-15.0)
[2018-11-06 10:11] LABS: PLATELET COUNT 308 10x3/uL (130-400)
[2018-11-06 10:15] LABS: ALBUMIN 2.7 g/dL (3.4-5.0); ANION GAP 8.3 mmol/L (8-16); BILIRUBIN - TOTAL 0.73 mg/dL (0.2-1.3); CALCIUM 8.6 mg/dL (8.5-10.1); CARBON DIOXIDE 32.6 mmol/L (21.0-32.0); CREATININE - SERUM 1.2 mg/dL (0.6-1.3); POTASSIUM - SERUM 3.9 mmol/L (3.5-5.1)
[2018-11-06 11:54] LABS: APPEARANCE CLOUDY (CLEAR); BACTERIA MODERATE /hpf (NONE SEEN); BILIRUBIN NEGATIVE (NEGATIVE); COLOR YELLOW BROWN (YELLOW); EPITHELIAL CELLS 0-5 /hpf (0-5); GLUCOSE NEGATIVE (NEGATIVE); KETONE NEGATIVE (NEGATIVE); MUCUS <1+ /lpf (NONE SEEN); NITRITE POSITIVE (NEGATIVE); PROTEIN 3+ mg/dL (NEGATIVE); RED CELLS - URINE >50 /hpf (0-5); SPECIFIC GRAVITY 1.015 (1.005-1.020); UROBILINOGEN NORMAL (NORMAL)
[2018-11-06 15:50] VITALS: BP 148/87; BMI 22.2
--- NOTE | 2018-11-06 16:09 | NUR ---
PT ARRIVED TO FLOOR WITH ER STAFF. PT ANSWERS ALL QUESTIONS. VSS AND WNL
--- NOTE | 2018-11-06 19:45 | NUR ---
LYING IN BED. ALERT AND ORIENTED X4. TALKATIVE WITH STAFF. RESP EVEN AND NONLABORED. BBS CTA. 2+ EDEMA NOTED TO BLE. TEA COLORED URINE NOTED IN URINAL. NS @ 125 ML/HR INFUSING IN RT FOREARM. DENIES PAIN. SR ELEVATED X2. CL IN REACH.
[2018-11-06 21:22] VITALS: BP 142/98
[2018-11-07 00:25] VITALS: BP 147/91
--- NOTE | 2018-11-07 03:42 | NUR ---
HAS RESTED WELL SO FAR THIS SHIFT. LYING IN BED WITH EYES CLOSED. RESP NONLABORED. CL IN REACH.
[2018-11-07 05:20] VITALS: BP 147/90
--- NOTE | 2018-11-07 06:08 | NUR ---
IV LEAKING IN RT FOREARM. IV CATH REMOVED. IV RESTARTED IN LT FOREARM WITH 22G AFTER ATTEMPT X1. PT GOPAL WELL.
[2018-11-07 07:18] LABS: BASOPHILS 0.6 % (0-2); EOSINOPHILS 2.4 % (0-7); HEMATOCRIT 36.7 % (42.0-54.0); HEMOGLOBIN 11.5 g/dL (13.5-17.5); IMMATURE GRANULOCYTES 0.1 % (0-5); LYMPHOCYTES 12.2 % (15-50); MCH 29.1 pg (26.0-34.0); MCHC 31.3 g/dL (31.0-37.0); MCV 92.9 fL (80.0-100.0); MEAN PLATELET VOLUME 9.6 fL (7.4-10.4); MONOCYTES 11.9 % (2-11); NEUTROPHILS 72.8 % (40-80); PLATELET COUNT 262 10x3/uL (130-400); RBC 3.95 10x6/uL (4.20-6.10)
[2018-11-07 07:21] LABS: WBC 7.1 10x3/uL (4.8-10.8)
[2018-11-07 07:35] LABS: ALBUMIN 2.2 g/dL (3.4-5.0); ALKALINE PHOSPHATASE 128 U/L (46-116); ALT (SGPT) 21 U/L (10-68); BILIRUBIN - TOTAL 0.61 mg/dL (0.2-1.3); CALC OSMOLALITY 279 mosm/kg (275-300); CHLORIDE - SERUM 104 mmol/L (98-107); GLUCOSE 84 mg/dL (74-106); POTASSIUM - SERUM 3.7 mmol/L (3.5-5.1); PROTEIN - SERUM 6.1 g/dL (6.4-8.2); SODIUM 139 mmol/L (136-145); UREA NITROGEN 21 mg/dL (7-18); eGFR NON AFRICAN AMERICAN 76 mL/min (90-120)
[2018-11-07 08:03] VITALS: BP 163/95
--- NOTE | 2018-11-07 10:30 | NUR ---
PT RESTING IN BED, NOTICED THAT PT BED WAS SATURATED. ASSISTED PT WITH BED BATH AND COMPLETE LINEN CHANGE. AM MEDS GIVEN ORDERED. SCDS IN PLACE. SHIFT ASSESSMENT PERFORMED. DENIES ANY PAIN AT THIS TIME, WILL CONT TO FOLLOW PLAN OF CARE
[2018-11-07 13:22] VITALS: Ht 175.3 cm; Wt 68.0 kg
[2018-11-07 20:10] VITALS: BP 148/73
[2018-11-08 00:25] VITALS: BP 147/90
[2018-11-08 06:48] VITALS: BP 155/106
[2018-11-08 07:31] LABS: BASOPHILS 0.5 % (0-2); EOSINOPHILS 2.5 % (0-7); HEMATOCRIT 37.9 % (42.0-54.0); HEMOGLOBIN 12.1 g/dL (13.5-17.5); IMMATURE GRANULOCYTES 0.2 % (0-5); LYMPHOCYTES 10.9 % (15-50); MCH 29.7 pg (26.0-34.0); MCHC 31.9 g/dL (31.0-37.0); MCV 92.9 fL (80.0-100.0); MEAN PLATELET VOLUME 8.9 fL (7.4-10.4); NEUTROPHILS 74.9 % (40-80); PLATELET COUNT 282 10x3/uL (130-400); RBC 4.08 10x6/uL (4.20-6.10); RDW 15.8 % (11.5-14.5); WBC 5.9 10x3/uL (4.8-10.8)
[2018-11-08 08:09] LABS: ANION GAP 10.9 mmol/L (8-16); CALCIUM 7.9 mg/dL (8.5-10.1); CARBON DIOXIDE 28.8 mmol/L (21.0-32.0); CREATININE - SERUM 1.1 mg/dL (0.6-1.3); POTASSIUM - SERUM 3.7 mmol/L (3.5-5.1)
--- NOTE | 2018-11-08 09:00 | NUR ---
ASSISTED WITH URINAL PER STAFF. VOIDED WITHOUT DIFFICUTLY.
[2018-11-08 09:07] VITALS: BP 179/111
--- NOTE | 2018-11-08 09:12 | NUR ---
AWAKE AND ALERT. ORIENTED X3. NO C/O AT THIS TIME. LUNGS ARE CLEAR BILATERALLY, NO COUGH NOTED. SKIN IS INTACT WITHOUT REDNESS. ATE MOST OF BREAKFAST THIS AM. IV TO LEFT WRIST PATENT WITHOUT REDNESS AT INSERTION SITE. DENIES NEEDS.
--- NOTE | 2018-11-08 10:00 | NUR ---
INCONTINENT OF URINE. SPILLED URINAL. SKIN CARE AND LINENES CHANGED PER STAFF. DENIES NEEDS.
--- NOTE | 2018-11-08 10:30 | NUR ---
INCONTINENET OF URINE AGAIN. SKIN CARE PER STAFF. LINENS CHAGED.
--- NOTE | 2018-11-08 11:15 | NUR ---
INCONTINENT OF URINE AGAIN. SKIN CARE AND LINENS CHANGED PER STAFF. DENIES NEEDS.
--- NOTE | 2018-11-08 11:18 | NUR ---
INCONTINENT OF URINE. SKIN CARE PER STAFF. LINENS CHANGED PER STAFF. REPOSITIONED IN BED FOR COMFORT.
[2018-11-08 13:50] VITALS: BP 135/72
[2018-11-08 17:35] VITALS: BP 173/114
[2018-11-08 19:30] VITALS: BP 153/91
--- NOTE | 2018-11-08 20:08 | NUR ---
PATIENT RESTING IN BED AND DENIES NEEDS AT THIS TIME. BED IN LOWEST POSITION AND CALL LIGHT WITHIN REACH. ENCOURAGED THE PATIENT TO CALL IF HE HAS NEEDS. WILL CONTINUE TO MONITOR.
[2018-11-09] VITALS: BP 128/85
[2018-11-09 04:00] VITALS: BP 143/99
[2018-11-09 06:43] LABS: BASOPHILS 0.6 % (0-2); EOSINOPHILS 1.5 % (0-7); HEMATOCRIT 40.1 % (42.0-54.0); HEMOGLOBIN 12.5 g/dL (13.5-17.5); IMMATURE GRANULOCYTES 0.3 % (0-5); LYMPHOCYTES 10.5 % (15-50); MCH 28.9 pg (26.0-34.0); MCHC 31.2 g/dL (31.0-37.0); MCV 92.6 fL (80.0-100.0); MEAN PLATELET VOLUME 9.5 fL (7.4-10.4); MONOCYTES 12.5 % (2-11); NEUTROPHILS 74.6 % (40-80); PLATELET COUNT 311 10x3/uL (130-400); RBC 4.33 10x6/uL (4.20-6.10); RDW 15.9 % (11.5-14.5); WBC 7.1 10x3/uL (4.8-10.8)
[2018-11-09 06:47] LABS: CALC OSMOLALITY 281 mosm/kg (275-300); CALCIUM 8.2 mg/dL (8.5-10.1); CARBON DIOXIDE 27.6 mmol/L (21.0-32.0); CHLORIDE - SERUM 105 mmol/L (98-107); GLUCOSE 105 mg/dL (74-106); SODIUM 140 mmol/L (136-145); UREA NITROGEN 22 mg/dL (7-18); eGFR NON AFRICAN AMERICAN 76 mL/min (90-120)
[2018-11-09 08:00] VITALS: BP 156/106
--- NOTE | 2018-11-09 08:00 | NUR ---
SITTING UP IN BED EATING BREAKFAST. LUNGS ARE CLEAR BILATERALLY, NO COUGH NOTED. SKIN IS INTACT WITHOUT REDNESS. IV TO LEFT WRIST IS PATENT WITHOUT REDNESS AT INSERTION SITE. EDEMA NOTED TO SCROTUM AND THIGHS THIS AM. NO IMPROVEMENT FROM YESTERDAY. WILL CONTINUE TO MONITOR. DENIES NEEDS.
--- NOTE | 2018-11-09 09:30 | NUR ---
UP TO BR WITH 2 PERSON MOD ASSIST AND RW. UNABLE TO HAVE BM. REFUSED OFFER OF MOM. I'M GOING HOME TODAY ONE WAY OR THE OTHER STATED PER PATIENT. CALLED [facility] WITH DR. MILAN. AWAITING RESPONSE.
--- NOTE | 2018-11-09 11:23 | NUR ---
ASSISTED WITH URINAL PER STAFF. VOIDED ONLY 100 CC LIGHT YELLOW URINE. DENIES NEEDS. STILL STATED HE WANTS TO GO HOME.
[2018-11-09 12:00] VITALS: BP 161/113
[2018-11-09] MEDS ORDERED: OMNICEF300 MG PO (14:30)
--- NOTE | 2018-11-09 14:30 | NUR ---
SPOKE WITH DR. BJORN PETERSEN'S NURSE RE DISCHARGE ON ANTIBIOTICS. NEW ORDERS RECEIVED.
--- NOTE | 2018-11-09 14:59 | MORECARE ---
CASE MANAGEMENT DISCHARGE SUMMARY PATIENT: DENI MEDINA XIMENA UNIT: [id number] ADM DATE: 11/06/18 AGE: 83 : 36 SEX: M ROOM/BED: D.1210 AUTHOR: NAIF CRISTINA PHYSICIAN: REFERRING PHYSICIAN: HIRAM MILAN MD DATE OF SERVICE: 11/09/18 Discharge Plan Patient Name: DENI MEDINA Facility: [facility]:[place] : 1935 Planned Disposition: [facility] Care Fac MCR Anticipated Discharge Date: 11/09/18 Discharge Date: Expected LOS: 3 Initial Reviewer: [email or web address] Initial Review Date: 11/09/2018 Generated: 11/09/18 3:59 pm Comments DCP- Discharge Planning Updated by [email or web address]: Adilia Mesa on 11/09/18 10:[address] LATE ENTRY 1015 PATIENT WOULD LIKE TO BE DISCHARGED BACK TO FACILITY TODAY. PRIMARY NURSE, OPAL, CALLED RADHIKA BERRIOS. HE CALLED BACK. HE IS IN RELIGIOUS AND IT IS NOT AN EMERGENCY, HE WILL REURN CALL LATER. AWAIT DECISION. Patient Name: DENI MEDINA Page [id number] at 1459 All edits/amendments must be made on the electronic document DICTATION DATE: 11/09/181458 WASH PLANT OPERATOR: SIMÓN 11/09/181458 RPT#: [id number] DC DATE: STATUS: ADM IN [facility] [address] [place] [address] END OF REPORT
--- NOTE | 2018-11-09 15:06 | MORECARE ---
CASE MANAGEMENT DISCHARGE SUMMARY PATIENT: DENI MEDINA XIMENA UNIT: [id number] ADM DATE: 11/06/18 AGE: 83 : 36 SEX: M ROOM/BED: D.1210 AUTHOR: NAIF CRISTINA PHYSICIAN: REFERRING PHYSICIAN: HIRAM MILAN MD DATE OF SERVICE: 11/09/18 Discharge Plan Patient Name: DENI MEDINA Facility: [facility]:[place] : 1935 Planned Disposition: Residential Care Fac MCR Anticipated Discharge Date: 11/09/18 Discharge Date: Expected LOS: 3 Initial Reviewer: [email or web address] Initial Review Date: 11/09/2018 Generated: 11/09/18 4:06 pm Comments DCP- Discharge Planning Updated by [email or web address]: Adilia Mesa on 11/09/18 2:[address] 1345 RECEIVED TELEPHONE CALL FROM RYNE OIL DISTRIBUTOR TENDER. RADHIKA BERRIOS, HAD DISCHARGE ORDERS FOR THE PATIENT. TC TO [facility]. ADVISED PATIENT WAS BEING DISCHARGED TODAY. REVIEWED MD DISCHARGE SUMMARY. FAXED D/C SUMMARY. LABS AND MEDICATION DISCHARGE LIST. RECEIVING NURSE ADVISED TO SEND THE PATIENT BY AMBULANCE. CM SPOKE WITH THE OIL DISTRIBUTOR TENDER. PRIMARY NURSE WILL CALL REPORT. PT'S PRIMARY DIAGNOSIS IS UTI. HE HAD 4 DOSES OF IV ROCEPHIN. NO ORAL ANTIBIOTICS AT DISCHARGE. CM AND PRIMARY NURSE, OPAL, SPOKE. OPAL CALLED TRAVEL AGENT REGARDING AN ANTIBIOTIC AT DISCHARGE. ORDER WAS OBTAINED. [facility] TO ADVISE WHETHER PATIENT WILL BE ADMITTED TO SKILLED OR JAIL BED. DCP- Discharge Planning Updated by [email or web address]: Adilia Mesa on 11/09/18 10:[address] LATE ENTRY 1015 PATIENT WOULD LIKE TO BE DISCHARGED BACK TO FACILITY TODAY. PRIMARY NURSE, OPAL, CALLED RADHIKA BERRIOS. HE CALLED BACK. HE IS IN SPIRITISM AND IT IS NOT AN EMERGENCY, HE WILL REURN CALL LATER. AWAIT DECISION. Last DP export: 11/09/18 1:59 p Patient Name: DENI MEDINA Page [id number] at 1506 All edits/amendments must be made on the electronic document DICTATION DATE: 11/09/18 150 KEY BED INSTALLER: SIMÓN 11/09/18 150 RPT#: [id number] DC DATE: STATUS: ADM IN [facility] [address] [place] [address] END OF REPORT
--- NOTE | 2018-11-09 15:30 | NUR ---
ASSISTED TO DRESS PER STAFF. SL TO LEFT FOREARM D/C WITH CATHETER INTACT. REPORT CALLED TO RANDI PUGH LPN AT [facility]. ALL QUESTIONS ANSWERED.
--- NOTE | 2018-11-09 15:50 | NUR ---
CALLED KAMINI, PATIENT'S SON, AND INFORMED OF DISCHARGE PLANS. ALL QUESTIONS ANSWERED.
--- NOTE | 2018-11-09 16:00 | NUR ---
DISCHARGED TO [facility] VIA AMBULANCE. ALL BELONGINGS WITH PATIENT.
--- NOTE | 2018-11-10 17:28 | MORECARE ---
CASE MANAGEMENT DISCHARGE SUMMARY PATIENT: DENI MEDINA XIMENA UNIT: [id number] ADM DATE: 11/06/18 AGE: 83 : 36 SEX: M ROOM/BED: D.1210 AUTHOR: NAIF CRISTINA PHYSICIAN: REFERRING PHYSICIAN: HIRAM MILAN MD DATE OF SERVICE: 11/10/18 Discharge Plan Patient Name: DENI MEDINA Facility: [facility]:[place] : 1935 Planned Disposition: [facility]iary Care Fac MCR Anticipated Discharge Date: 11/09/18 Discharge Date: 11/09/2018 Expected LOS: 3 Initial Reviewer: [email or web address] Initial Review Date: 11/09/2018 Generated: 11/10/18 6:27 pm Comments DCP- Discharge Planning Updated by [email or web address]: Adilia Mesa on 11/10/18 4:[address] THREE TELEPHONE CALLS TO [facility] TO DETERMINE IF PATIENT WAS ADMITTED TO ASSISTANCE REPRESENTATIVE BED OR MEDICARE BED. LEFT MESSAGE. NO RETURN CALL AT THIS TIME. DCP- Discharge Planning Updated by [id number]: Adilia Mesa on 11/09/18 2:[address] 1345 RECEIVED TELEPHONE CALL FROM RYNE DIRECTOR OF PRODUCT MARKETING. RADHIKA BERRIOS, HAD DISCHARGE ORDERS FOR THE PATIENT. TC TO [facility]. ADVISED PATIENT WAS BEING DISCHARGED TODAY. REVIEWED MD DISCHARGE SUMMARY. FAXED D/C SUMMARY. LABS AND MEDICATION DISCHARGE LIST. RECEIVING NURSE ADVISED TO SEND THE PATIENT BY AMBULANCE. CM SPOKE WITH THE DIRECTOR OF PRODUCT MARKETING. PRIMARY NURSE WILL CALL REPORT. PT'S PRIMARY DIAGNOSIS IS UTI. HE HAD 4 DOSES OF IV ROCEPHIN. NO ORAL ANTIBIOTICS AT DISCHARGE. CM AND PRIMARY NURSE, OPAL, SPOKE. OPAL CALLED PRESIDENT PRACTICING UROLOGIST REGARDING AN ANTIBIOTIC AT DISCHARGE. ORDER WAS OBTAINED. [facility] TO ADVISE WHETHER PATIENT WILL BE ADMITTED TO SKILLED OR INTERMEDIATE BED. DCP- Discharge Planning Updated by [email or web address]: Adilia Mesa on 11/09/18 10:[address] LATE ENTRY 1015 PATIENT WOULD LIKE TO BE DISCHARGED BACK TO FACILITY TODAY. PRIMARY NURSE, OPAL, CALLED RADHIKA BERRIOS. HE CALLED BACK. HE IS IN TENRIISM AND IT IS NOT AN EMERGENCY, HE WILL REURN CALL LATER. AWAIT DECISION. Last DP export: 11/09/18 2:06 p Patient Name: DENI MEDINA Page [id number] at 1728 All edits/amendments must be made on the electronic document DICTATION DATE: 11/10/181726 COMPLEMENTARY HEALTH THERAPISTS: SIMÓN 11/10/181726 RPT#: [id number] DC DATE:11/09/18 STATUS: DIS IN [facility] [address] [place] [address] END OF REPORT
--- NOTE | 2018-11-11 10:14 | MORECARE ---
CASE MANAGEMENT DISCHARGE SUMMARY PATIENT: DENI MEDINA XIMENA UNIT: [id number] ADM DATE: 11/06/18 AGE: 83 : 36 SEX: M ROOM/BED: D.1210 AUTHOR: NAIF CRISTINA PHYSICIAN: REFERRING PHYSICIAN: HIRAM MILAN MD DATE OF SERVICE: 11/11/18 Discharge Plan Patient Name: DENI MEDINA Facility: [facility]:[place] : 1935 Planned Disposition: Residential Care Fac MCR Anticipated Discharge Date: 11/09/18 Discharge Date: 11/09/2018 Expected LOS: 3 Initial Reviewer: [email or web address] Initial Review Date: 11/09/2018 Generated: 11/11/18 11:14 am Comments DCP- Discharge Planning Updated by [email or web address]: Adilia Mesa on 11/10/18 4:[address] THREE TELEPHONE CALLS TO [facility] TO DETERMINE IF PATIENT WAS ADMITTED TO STEEPING PRESS OPERATOR BED OR MEDICARE BED. LEFT MESSAGE. NO RETURN CALL AT THIS TIME. DCP- Discharge Planning Updated by [email or web address]: Adilia Mesa on 11/09/18 2:[address] 1345 RECEIVED TELEPHONE CALL FROM RYNE TUCKPOINTER CLEANER CAULKER. RADHIKA BERRIOS, HAD DISCHARGE ORDERS FOR THE PATIENT. TC TO [facility]. ADVISED PATIENT WAS BEING DISCHARGED TODAY. REVIEWED MD DISCHARGE SUMMARY. FAXED D/C SUMMARY. LABS AND MEDICATION DISCHARGE LIST. RECEIVING NURSE ADVISED TO SEND THE PATIENT BY AMBULANCE. CM SPOKE WITH THE TUCKPOINTER CLEANER CAULKER. PRIMARY NURSE WILL CALL REPORT. PT'S PRIMARY DIAGNOSIS IS UTI. HE HAD 4 DOSES OF IV ROCEPHIN. NO ORAL ANTIBIOTICS AT DISCHARGE. CM AND PRIMARY NURSE, OPAL, SPOKE. OPAL CALLED SENIOR CLINICAL STUDY MANAGER REGARDING AN ANTIBIOTIC AT DISCHARGE. ORDER WAS OBTAINED. [facility] TO ADVISE WHETHER PATIENT WILL BE ADMITTED TO SKILLED OR STEEPING PRESS OPERATOR BED. DCP- Discharge Planning Updated by [id number]: Adilia Mesa on 11/09/18 10:[address] LATE ENTRY 1015 PATIENT WOULD LIKE TO BE DISCHARGED BACK TO FACILITY TODAY. PRIMARY NURSE, OPAL, CALLED RADHIKA BERRIOS. HE CALLED BACK. HE IS IN PENTECOSTALISM AND IT IS NOT AN EMERGENCY, HE WILL REURN CALL LATER. AWAIT DECISION. Last DP export: 11/10/18 4:27 p Patient Name: DENI MEDINA Page [phone] at 1014 All edits/amendments must be made on the electronic document DICTATION DATE: 11/11/18 1013 CONDENSER TUBE TENDER: SIMÓN 11/11/18 1013 RPT#: [id number] DC DATE:11/09/18 STATUS: DIS IN [facility] [address] [place] [address] END OF REPORT
== END 2018-11-09 16:00 | DRG 690 ==
LOC: D.ER 09:02 → D.EDHOLD 13:31 → D.M3 13:31
PROVIDERS: Emergency Medicine; Family Medicine; ADMIT Legal Medicine; ATTEND Legal Medicine
DX: N39.0 Urinary tract infection, site not specified (principal); F02.81 Dementia in other diseases classified elsewhere, unspecified severity, with behavioral disturbance; I10 Essential (primary) hypertension; F32.9 Major depressive disorder, single episode, unspecified; I48.2 Chronic atrial fibrillation; N50.89 Other specified disorders of the male genital organs; G30.9 Alzheimer's disease, unspecified